=== PATIENT | female | born 1980 | race Two or more races ===

== ENCOUNTER 2021-03-17 07:53 | Inpatient (IN) | payer OTHER ==
[2021-03-17 08:16] VITALS: BMI 27.3
[2021-03-17] MEDS ORDERED: SODIUM CHLORIDE 1,000 ML IV STA (08:55)
[2021-03-17] MEDS ORDERED: MECLIZINE HCL 25 MG TABLET (FP) PO ONE (08:55)
[2021-03-17] MEDS ORDERED: ACETAMINOPHEN 500 MG TABLET (FP) PO ONE (08:56)
[2021-03-17] MEDS ORDERED: ACETAMINOPHEN INJECTION 100 ML IVPB ONE ×2 (09:10→22:21)
[2021-03-17] MEDS ORDERED: ONDANSETRON 4 MG/2 ML VIAL IVPUSH ONE (09:10)
[2021-03-17] MEDS ORDERED: ONDANSETRON 4 MG/2 ML VIAL ONE (09:11)
[2021-03-17 09:22] LABS: BASO % 0.6 % (0-2.0); EOS % 0.6 % (0-4.5); HEMATOCRIT 35.7 % (32.4-45.2); HEMOGLOBIN 11.9 GM/dL (10.7-15.3); LYMPH % 11.6 % (8-40); MCH 27.5 pg (25.7-33.7); MCHC 33.2 g/dl (32.0-36.0); MEAN CELL VOLUME 82.7 fl (80-96); MEAN PLT VOLUME 8.4 fl (7.5-11.1); MONO % 4.9 % (3.8-10.2); NEUT % 82.3 % (42.8-82.8); PLATELET COUNT 236 10^3/uL (134-434); RBC 4.32 M/mm3 (3.60-5.2); RDW 13.9 % (11.6-15.6); WHITE BLOOD COUNT 9.6 K/mm3 (4.0-10.0)
[2021-03-17 09:49] LABS: ALBUMIN 3.7 g/dl (3.4-5.0); CALCIUM 7.8 mg/dL (8.5-10.1)
[2021-03-17 09:50] LABS: BLOOD UREA NITROGEN 15.2 mg/dL (7-18)
[2021-03-17 09:53] LABS: CREATININE 0.8 mg/dL (0.55-1.3); TOT PROT 6.9 g/dl (6.4-8.2)
[2021-03-17 10:01] LABS: BILIRUBIN,TOTAL 0.9 mg/dL (0.2-1)
[2021-03-17 11:03] LABS: PH,URINE 5.5 (5.0-8.0); URINE APPEARANCE CLEAR; URINE BILIRUBIN NEGATIVE (NEGATIVE); URINE COLOR YELLOW; URINE GLUCOSE (UA) NEGATIVE (NEGATIVE); URINE KETONE NEGATIVE (NEGATIVE); URINE LEUK ESTERASE NEGATIVE (NEGATIVE); URINE NITRITE NEGATIVE (NEGATIVE); URINE PROTEIN NEGATIVE (NEGATIVE); URINE UROBILINOGEN 0.2 mg/dL (0.2-1.0)
[2021-03-17] MEDS ORDERED: MECLIZINE HCL 25 MG TABLET (FP) ONE (11:41)
[2021-03-17] MEDS ORDERED: METOCLOPRAMIDE HCL INJECTION 10 MG/2 ML VIAL ONE ×3 (12:44→22:21)
[2021-03-17] MEDS ORDERED: METOCLOPRAMIDE HCL INJECTION 10 MG/2 ML VIAL IVPUSH ONE ×3 (12:48→21:55)
[2021-03-17] MEDS ORDERED: LORazepam 2 MG/ML SDV VIAL IVPB ONE (15:20)
[2021-03-17] MEDS ORDERED: LORazepam 2 MG/ML SDV VIAL ONE (15:20)
[2021-03-17] MEDS ORDERED: LORazepam 2 MG/ML SDV VIAL IVPUSH ONE (15:35)
[2021-03-17] MEDS ORDERED: KETOROLAC TROMETHAMINE 15 MG/ML VIAL IVPUSH ONE (21:55)
[2021-03-17] MEDS ORDERED: MAGNESIUM SULF 50% (8.12 MEQ/2 ML-1 GM VIAL) IVPB ONE (21:55)
[2021-03-17] MEDS ORDERED: ACETAMINOPHEN 1000 MG/100 ML VIAL (NON FORMULARY) IVPB ONE (21:55)
[2021-03-17] MEDS ORDERED: KETOROLAC TROMETHAMINE 15 MG/ML VIAL ONE (22:21)
[2021-03-18] MEDS ORDERED: MAGNESIUM 1GM/D5W - 1 GM/100 ML IVPB IVPB ONE (01:18)
[2021-03-18] MEDS ORDERED: PROCHLORPERAZINE INJECTION 10 MG/2 ML VIAL IVPB ONE (02:11)
[2021-03-18] MEDS: SODIUM CHLORIDE 1,000 ML IV SCH ×3 (02:47→22:02)
[2021-03-18] MEDS ORDERED: MORPHINE SULFATE 2 MG/ML VIAL ONE (02:54)
[2021-03-18] MEDS ORDERED: MORPHINE SULFATE 2 MG/ML VIAL IVPUSH ONE ×2 (03:15→16:43)
[2021-03-18 03:25] LABS: CHOLESTEROL 126 mg/dL (50-200); TRIGLYCERIDES 80 mg/dL (0-150)
[2021-03-18 03:26] LABS: LDL CHOLESTEROL (ONLY SJRH) 73 mg/dL (5-100)
[2021-03-18 03:28] LABS: HDL CHOLESTEROL 48 mg/dL (40-60)
[2021-03-18 08:38] LABS: HEMATOCRIT 31.9 % (32.4-45.2); HEMOGLOBIN 10.7 GM/dL (10.7-15.3); MCH 27.2 pg (25.7-33.7); MCHC 33.6 g/dl (32.0-36.0); MEAN CELL VOLUME 81.1 fl (80-96); MEAN PLT VOLUME 8.4 fl (7.5-11.1); PLATELET COUNT 218 10^3/uL (134-434); RBC 3.93 M/mm3 (3.60-5.2); RDW 13.9 % (11.6-15.6); WHITE BLOOD COUNT 9.4 K/mm3 (4.0-10.0)
[2021-03-18 09:02] LABS: BLOOD UREA NITROGEN 8.7 mg/dL (7-18); CALCIUM 7.7 mg/dL (8.5-10.1)
[2021-03-18 09:06] LABS: CREATININE 0.6 mg/dL (0.55-1.3)
[2021-03-18] MEDS: MECLIZINE HCL 25 MG TABLET (FP) PO SCH ×3 (09:49→22:02)
[2021-03-18] MEDS ORDERED: ACETAMINOPHEN 1000 MG/100 ML VIAL (NON FORMULARY) IVPB ONE (09:52)
[2021-03-18] MEDS ORDERED: MECLIZINE HCL 25 MG TABLET (FP) PO PRN (10:00)
[2021-03-18] MEDS ORDERED: KETOROLAC TROMETHAMINE 10 MG TABLET PO PRN (10:44)
[2021-03-18] MEDS: ACETAMINOPHEN/CAFFEINE/BUTALBITAL 1 TAB PO PRN ×2 (11:02→14:36)
[2021-03-18] MEDS ORDERED: THROMBIN (BOVINE) 20,000 UNIT VIAL TP ONE (16:35)
[2021-03-18] MEDS ORDERED: BACITRACIN 15 GM TUBE TOPICAL OINTMENT ONE (16:35)
[2021-03-18] MEDS ORDERED: GENTAMICIN SO4 80 MG/2 ML VIAL ONE (16:37)
[2021-03-18] MEDS ORDERED: LIDOCAINE HCL/PF 2% SDV 5ML VIAL ONE (16:39)
[2021-03-18] MEDS ORDERED: fentaNYL CITRATE 250 MCG/5 ML VIAL ONE (16:39)
[2021-03-18] MEDS ORDERED: LIDOCAINE 1%/EPI 1:100000 (50 ML MULTI DOSE VIAL) ONE ×3 (16:39→16:52)
[2021-03-18] MEDS ORDERED: PROPOFOL 20 ML ONE ×6 (16:40→19:01)
[2021-03-18] MEDS ORDERED: BUPIVACAINE HCL/PF 0.5% (5MG/ML) 10 ML VIAL ONE (16:40)
[2021-03-18] MEDS ORDERED: LIDOCAINE HCL 1%, 10 MG/ML (20ML VIAL) ONE (16:43)
[2021-03-18] MEDS ORDERED: NICARDIPINE 25 MG in DEXTROSE 5%-WATER - 240 ML IVPB SCH (16:45)
[2021-03-18] MEDS ORDERED: PHENYLEPHRINE HCL 10 MG/1 ML SINGLE DOSE VIAL ONE (16:48)
[2021-03-18] MEDS ORDERED: morphine SULFATE 4 MG/ML VIAL IM PRN (17:26)
[2021-03-18] MEDS ORDERED: ETOMIDATE 20 MG/10 ML AMPUL IVPUSH ONE (17:39)
[2021-03-18] MEDS ORDERED: ceFAZolin SODIUM 1 GM VIAL IVPB ONE (18:06)
[2021-03-18] MEDS ORDERED: ceFAZolin SODIUM 1 GM VIAL ONE (18:12)
[2021-03-18] MEDS ORDERED: VANCOMYCIN 1,000 MG VIAL (RESTRICTED TO ID ONLY) ONE (18:19)
[2021-03-18] MEDS ORDERED: GLYCOPYRROLATE 0.2 MG/1 ML VIAL ONE (19:31)
[2021-03-18] MEDS ORDERED: NEOSTIGMINE METHYLSULFATE 0.5 MG/ML - 10 ML MDV ONE (19:32)
[2021-03-18] MEDS ORDERED: LACTATED RINGERS SOLUTION 1,000 ML/1,000 ML INFUS.BAG IV SCH (20:15)
[2021-03-18] MEDS ORDERED: SODIUM CHLORIDE 1,000 ML IV SCH (20:25)
[2021-03-18] MEDS ORDERED: ONDANSETRON 4 MG/2 ML VIAL IVPUSH PRN (21:42)
[2021-03-18] MEDS ORDERED: MUPIROCIN 2% TOPICAL OINTMENT FOR DECOLONIZATION NS SCH (22:00)
[2021-03-18] MEDS ORDERED: CHLORHEXIDINE GLUCONATE 4% CLEANSER FOR DECOLONIZATION TP SCH (22:00)
[2021-03-18] MEDS: DOCUSATE SODIUM 100 MG CAPSULE (FP) PO SCH (22:03)
[2021-03-18] MEDS: CHLORHEXIDINE GLUCONATE 4% CLEANSER FOR DECOLONIZATION TP SCH (22:03)
[2021-03-18] MEDS: MUPIROCIN 2% TOPICAL OINTMENT FOR DECOLONIZATION NS SCH (22:03)
[2021-03-18] MEDS: HEPARIN NA (PORCINE) 5,000 UNITS/ML 1ML VIAL SQ SCH (22:04)
[2021-03-18] MEDS: NICARDIPINE 25 MG in DEXTROSE 5%-WATER - 240 ML IVPB SCH (23:00)
[2021-03-19] MEDS: morphine SULFATE 4 MG/ML VIAL IM PRN ×3 (06:26→20:35)
[2021-03-19] MEDS: HEPARIN NA (PORCINE) 5,000 UNITS/ML 1ML VIAL SQ SCH ×3 (06:26→21:10)
[2021-03-19] MEDS: MECLIZINE HCL 25 MG TABLET (FP) PO SCH ×3 (06:26→21:04)
[2021-03-19] MEDS: DOCUSATE SODIUM 100 MG CAPSULE (FP) PO SCH ×3 (06:26→21:04)
[2021-03-19 08:14] LABS: HEMATOCRIT 33.7 % (32.4-45.2); HEMOGLOBIN 11.4 GM/dL (10.7-15.3); MCH 27.1 pg (25.7-33.7); MCHC 33.7 g/dl (32.0-36.0); MEAN CELL VOLUME 80.6 fl (80-96); MEAN PLT VOLUME 8.8 fl (7.5-11.1); PLATELET COUNT 213 10^3/uL (134-434); RBC 4.18 M/mm3 (3.60-5.2); RDW 13.9 % (11.6-15.6); WHITE BLOOD COUNT 12.9 K/mm3 (4.0-10.0)
[2021-03-19 08:39] LABS: BLOOD UREA NITROGEN 5.8 mg/dL (7-18)
[2021-03-19 08:40] LABS: CALCIUM 7.5 mg/dL (8.5-10.1)
[2021-03-19 08:41] LABS: CREATININE 0.6 mg/dL (0.55-1.3); MAGNESIUM 1.5 mg/dL (1.8-2.4)
[2021-03-19 08:42] LABS: PHOSPHOROUS 2.1 mg/dL (2.5-4.9)
[2021-03-19] MEDS: FERROUS SO4 325 MG TABLET (FP) PO SCH (09:23)
[2021-03-19] MEDS: FOLIC ACID 1 MG TABLET (FP) PO SCH (09:23)
[2021-03-19] MEDS: MUPIROCIN 2% TOPICAL OINTMENT FOR DECOLONIZATION NS SCH ×2 (11:00→21:10)
[2021-03-19] MEDS: SODIUM CHLORIDE 1,000 ML IV SCH ×2 (11:18→21:56)
[2021-03-19] MEDS ORDERED: MAGNESIUM SULF 50% (8.12 MEQ/2 ML-1 GM VIAL) IVPB ONE (11:46)
[2021-03-19] MEDS ORDERED: POTASSIUM PHOSPHATE 30 MM in SODIUM CHLORIDE 250 ML IVPB ONE (12:00)
[2021-03-19 12:41] LABS: COCAINE, UR NEGATIVE (NEGATIVE); METHADONE, UR NEGATIVE (NEGATIVE); PHENCYCLIDINE,URINE NEGATIVE (NEGATIVE); URINE BENZODIAZEPINES NEGATIVE (NEGATIVE)
[2021-03-19 12:42] LABS: URINE AMPHETAMINES NEGATIVE (NEGATIVE)
[2021-03-19 12:55] LABS: OPIATES, URI POSITIVE (NEGATIVE); URINE BARBITURATES POSITIVE (NEGATIVE)
[2021-03-19] MEDS ORDERED: ACETAMINOPHEN 1000 MG/100 ML VIAL (NON FORMULARY) IVPB ONE ×2 (15:00→22:58)
[2021-03-19] MEDS ORDERED: PT OWN MED DRAWER 7, Y5N ONE (18:37)
[2021-03-19 19:44] LABS: INR 1.09 (0.83-1.09); PROTHROMBIN TIME (PATIENT) 13.1 SEC (9.7-13.0)
[2021-03-19] MEDS: NICARDIPINE 25 MG in DEXTROSE 5%-WATER - 240 ML IVPB SCH (21:03)
[2021-03-19] MEDS: CHLORHEXIDINE GLUCONATE 4% CLEANSER FOR DECOLONIZATION TP SCH (21:09)
[2021-03-20] MEDS: morphine SULFATE 4 MG/ML VIAL IM PRN ×2 (04:26→10:43)
[2021-03-20] MEDS: MECLIZINE HCL 25 MG TABLET (FP) PO SCH ×3 (05:54→21:51)
[2021-03-20] MEDS: DOCUSATE SODIUM 100 MG CAPSULE (FP) PO SCH ×3 (05:54→21:52)
[2021-03-20] MEDS: HEPARIN NA (PORCINE) 5,000 UNITS/ML 1ML VIAL SQ SCH ×3 (06:44→21:51)
[2021-03-20 07:36] LABS: BASO % 0.2 % (0-2.0); EOS % 0.3 % (0-4.5); HEMATOCRIT 30.7 % (32.4-45.2); HEMOGLOBIN 10.3 GM/dL (10.7-15.3); MCHC 33.4 g/dl (32.0-36.0); MEAN CELL VOLUME 80.9 fl (80-96); MEAN PLT VOLUME 8.2 fl (7.5-11.1); MONO % 10.1 % (3.8-10.2); NEUT % 75.4 % (42.8-82.8); PLATELET COUNT 185 10^3/uL (134-434); RBC 3.79 M/mm3 (3.60-5.2); RDW 14.1 % (11.6-15.6); WHITE BLOOD COUNT 8.3 K/mm3 (4.0-10.0)
[2021-03-20 07:49] LABS: BLOOD UREA NITROGEN 8.4 mg/dL (7-18); CALCIUM 7.3 mg/dL (8.5-10.1); MAGNESIUM 1.8 mg/dL (1.8-2.4)
[2021-03-20 07:53] LABS: CREATININE 0.6 mg/dL (0.55-1.3)
[2021-03-20 07:55] LABS: PHOSPHOROUS 2.9 mg/dL (2.5-4.9)
[2021-03-20 07:57] LABS: TOT PROT 5.9 g/dl (6.4-8.2)
[2021-03-20 07:59] LABS: BILIRUBIN,TOTAL 1.3 mg/dL (0.2-1)
[2021-03-20 08:10] LABS: HOMOCYSTINE-PLASMA OR SERUM 6.5 umol/L (0.0-14.5)
[2021-03-20] MEDS ORDERED: PT OWN MED DRAWER 7, Y5N ONE (08:26)
[2021-03-20] MEDS: KETOROLAC TROMETHAMINE 10 MG TABLET PO PRN ×2 (08:28→15:07)
[2021-03-20] MEDS: FERROUS SO4 325 MG TABLET (FP) PO SCH (10:47)
[2021-03-20] MEDS: FOLIC ACID 1 MG TABLET (FP) PO SCH (10:47)
[2021-03-20] MEDS: MUPIROCIN 2% TOPICAL OINTMENT FOR DECOLONIZATION NS SCH ×2 (10:48→21:51)
[2021-03-20] MEDS: PANTOPRAZOLE SODIUM 40 MG VIAL IVPUSH SCH (10:48)
[2021-03-20] MEDS: diphenhydrAMINE HCL 25 MG CAPSULE (FP) PO PRN (12:41)
[2021-03-20] MEDS ORDERED: ONDANSETRON 4 MG/2 ML VIAL IVPUSH PRN (14:20)
[2021-03-20] MEDS: SODIUM CHLORIDE 1,000 ML IV SCH ×2 (14:26→21:50)
[2021-03-20] MEDS: ACETAMINOPHEN/CAFFEINE/BUTALBITAL 1 TAB PO PRN (21:15)
[2021-03-20] MEDS: ATORVASTATIN CA 40 MG TABLET (FP) PO SCH (21:50)
[2021-03-20] MEDS: NICARDIPINE 25 MG in DEXTROSE 5%-WATER - 240 ML IVPB SCH (21:50)
[2021-03-20] MEDS: CHLORHEXIDINE GLUCONATE 4% CLEANSER FOR DECOLONIZATION TP SCH (21:52)
[2021-03-21] MEDS: ACETAMINOPHEN/CAFFEINE/BUTALBITAL 1 TAB PO PRN ×2 (00:31→04:26)
[2021-03-21] MEDS: KETOROLAC TROMETHAMINE 10 MG TABLET PO PRN ×2 (05:54→11:45)
[2021-03-21] MEDS: HEPARIN NA (PORCINE) 5,000 UNITS/ML 1ML VIAL SQ SCH ×3 (06:05→21:31)
[2021-03-21] MEDS: MECLIZINE HCL 25 MG TABLET (FP) PO SCH ×3 (06:05→21:32)
[2021-03-21] MEDS: DOCUSATE SODIUM 100 MG CAPSULE (FP) PO SCH ×3 (06:05→21:33)
[2021-03-21 06:52] LABS: BASO % 0.6 % (0-2.0); EOS % 0.9 % (0-4.5); HEMATOCRIT 30.6 % (32.4-45.2); HEMOGLOBIN 10.3 GM/dL (10.7-15.3); LYMPH % 17.5 % (8-40); MCH 27.3 pg (25.7-33.7); MCHC 33.6 g/dl (32.0-36.0); MEAN CELL VOLUME 81.2 fl (80-96); MEAN PLT VOLUME 8.6 fl (7.5-11.1); MONO % 9.2 % (3.8-10.2); NEUT % 71.8 % (42.8-82.8); PLATELET COUNT 186 10^3/uL (134-434); RBC 3.77 M/mm3 (3.60-5.2); RDW 14.1 % (11.6-15.6); WHITE BLOOD COUNT 7.2 K/mm3 (4.0-10.0)
[2021-03-21 07:09] LABS: CALCIUM 7.8 mg/dL (8.5-10.1)
[2021-03-21 07:10] LABS: ALBUMIN 2.8 g/dl (3.4-5.0); BLOOD UREA NITROGEN 8.7 mg/dL (7-18); MAGNESIUM 1.7 mg/dL (1.8-2.4)
[2021-03-21 07:13] LABS: CREATININE 0.5 mg/dL (0.55-1.3); PHOSPHOROUS 3.5 mg/dL (2.5-4.9)
[2021-03-21 07:14] LABS: BILIRUBIN,TOTAL 0.9 mg/dL (0.2-1); TOT PROT 5.8 g/dl (6.4-8.2)
[2021-03-21] MEDS: PANTOPRAZOLE SODIUM 40 MG VIAL IVPUSH SCH (10:36)
[2021-03-21] MEDS: FERROUS SO4 325 MG TABLET (FP) PO SCH (10:36)
[2021-03-21] MEDS: FOLIC ACID 1 MG TABLET (FP) PO SCH (10:36)
[2021-03-21] MEDS: MUPIROCIN 2% TOPICAL OINTMENT FOR DECOLONIZATION NS SCH ×2 (11:00→21:32)
[2021-03-21] MEDS ORDERED: PT OWN MED DRAWER 7, Y5N ONE (11:44)
[2021-03-21] MEDS: morphine SULFATE 4 MG/ML VIAL IM PRN ×2 (17:09→21:00)
[2021-03-21] MEDS: POLYETHYLENE GLYCOL (HEALTHYLAX) 3350 17 GM PACKET PO SCH (19:42)
[2021-03-21] MEDS: ATORVASTATIN CA 40 MG TABLET (FP) PO SCH (21:32)
[2021-03-21] MEDS: diphenhydrAMINE HCL 25 MG CAPSULE (FP) PO PRN (21:32)
[2021-03-21] MEDS: NICARDIPINE 25 MG in DEXTROSE 5%-WATER - 240 ML IVPB SCH (21:32)
[2021-03-21] MEDS: CHLORHEXIDINE GLUCONATE 4% CLEANSER FOR DECOLONIZATION TP SCH (21:33)
[2021-03-21] MEDS ORDERED: SENNOSIDES 8.6MG TABLET (FP) PO SCH (22:00)
[2021-03-22] MEDS: KETOROLAC TROMETHAMINE 10 MG TABLET PO PRN (04:14)
[2021-03-22] MEDS: DOCUSATE SODIUM 100 MG CAPSULE (FP) PO SCH ×3 (05:56→21:53)
[2021-03-22] MEDS: HEPARIN NA (PORCINE) 5,000 UNITS/ML 1ML VIAL SQ SCH ×3 (05:56→21:53)
[2021-03-22] MEDS: MECLIZINE HCL 25 MG TABLET (FP) PO SCH ×3 (05:56→21:53)
[2021-03-22 07:52] LABS: BASO % 0.5 % (0-2.0); EOS % 1.1 % (0-4.5); HEMATOCRIT 29.6 % (32.4-45.2); HEMOGLOBIN 10.1 GM/dL (10.7-15.3); LYMPH % 14.4 % (8-40); MCH 27.5 pg (25.7-33.7); MCHC 34.1 g/dl (32.0-36.0); MEAN CELL VOLUME 80.6 fl (80-96); MEAN PLT VOLUME 8.2 fl (7.5-11.1); MONO % 7.6 % (3.8-10.2); NEUT % 76.4 % (42.8-82.8); PLATELET COUNT 225 10^3/uL (134-434); RBC 3.68 M/mm3 (3.60-5.2); RDW 14.2 % (11.6-15.6); WHITE BLOOD COUNT 7.8 K/mm3 (4.0-10.0)
[2021-03-22 08:17] LABS: ALBUMIN 2.8 g/dl (3.4-5.0); BLOOD UREA NITROGEN 8.6 mg/dL (7-18); MAGNESIUM 1.6 mg/dL (1.8-2.4)
[2021-03-22 08:19] LABS: CREATININE 0.5 mg/dL (0.55-1.3); PHOSPHOROUS 4.2 mg/dL (2.5-4.9)
[2021-03-22 08:21] LABS: BILIRUBIN,TOTAL 0.6 mg/dL (0.2-1)
[2021-03-22] MEDS: MUPIROCIN 2% TOPICAL OINTMENT FOR DECOLONIZATION NS SCH ×2 (09:07→21:53)
[2021-03-22] MEDS: POLYETHYLENE GLYCOL (HEALTHYLAX) 3350 17 GM PACKET PO SCH (09:07)
[2021-03-22] MEDS: FOLIC ACID 1 MG TABLET (FP) PO SCH (09:07)
[2021-03-22] MEDS: FERROUS SO4 325 MG TABLET (FP) PO SCH (09:07)
[2021-03-22] MEDS: PANTOPRAZOLE SODIUM 40 MG VIAL IVPUSH SCH (09:07)
[2021-03-22] MEDS: morphine SULFATE 4 MG/ML VIAL IM PRN ×2 (11:50→22:25)
[2021-03-22] MEDS ORDERED: MAGNESIUM OXIDE 400 MG TABLET (FP) PO ONE (12:30)
[2021-03-22] MEDS: CHLORHEXIDINE GLUCONATE 4% CLEANSER FOR DECOLONIZATION TP SCH (21:54)
[2021-03-22] MEDS: ATORVASTATIN CA 40 MG TABLET (FP) PO SCH (21:54)
[2021-03-22] MEDS: diphenhydrAMINE HCL 25 MG CAPSULE (FP) PO PRN (22:26)
[2021-03-23] MEDS: DOCUSATE SODIUM 100 MG CAPSULE (FP) PO SCH ×3 (05:30→21:18)
[2021-03-23] MEDS: HEPARIN NA (PORCINE) 5,000 UNITS/ML 1ML VIAL SQ SCH ×3 (05:30→21:18)
[2021-03-23] MEDS: MECLIZINE HCL 25 MG TABLET (FP) PO SCH ×3 (05:30→21:18)
[2021-03-23 07:32] LABS: BASO % 0.3 % (0-2.0); EOS % 2.1 % (0-4.5); HEMATOCRIT 33.7 % (32.4-45.2); HEMOGLOBIN 11.3 GM/dL (10.7-15.3); LYMPH % 14.1 % (8-40); MCH 27.1 pg (25.7-33.7); MCHC 33.4 g/dl (32.0-36.0); MEAN PLT VOLUME 8.4 fl (7.5-11.1); MONO % 6.9 % (3.8-10.2); NEUT % 76.6 % (42.8-82.8); PLATELET COUNT 263 10^3/uL (134-434); RBC 4.16 M/mm3 (3.60-5.2); RDW 14.3 % (11.6-15.6); WHITE BLOOD COUNT 7.3 K/mm3 (4.0-10.0)
[2021-03-23 07:51] LABS: ALBUMIN 3.2 g/dl (3.4-5.0); BLOOD UREA NITROGEN 8.8 mg/dL (7-18); CALCIUM 8.7 mg/dL (8.5-10.1)
[2021-03-23 07:55] LABS: CREATININE 0.7 mg/dL (0.55-1.3); PHOSPHOROUS 4.2 mg/dL (2.5-4.9)
[2021-03-23 07:56] LABS: BILIRUBIN,TOTAL 0.7 mg/dL (0.2-1); TOT PROT 6.8 g/dl (6.4-8.2)
[2021-03-23] MEDS: POLYETHYLENE GLYCOL (HEALTHYLAX) 3350 17 GM PACKET PO SCH (11:24)
[2021-03-23] MEDS: PANTOPRAZOLE SODIUM 40 MG VIAL IVPUSH SCH (11:24)
[2021-03-23] MEDS: FERROUS SO4 325 MG TABLET (FP) PO SCH (11:24)
[2021-03-23] MEDS: FOLIC ACID 1 MG TABLET (FP) PO SCH (11:24)
[2021-03-23] MEDS ORDERED: BACITRACIN 15 GM TUBE TOPICAL OINTMENT TP SCH (13:00)
[2021-03-23] MEDS ORDERED: PT OWN MED DRAWER 7, Y5N ONE (14:09)
[2021-03-23] MEDS: KETOROLAC TROMETHAMINE 10 MG TABLET PO PRN (14:20)
[2021-03-23] MEDS: MUPIROCIN 2% TOPICAL OINTMENT FOR DECOLONIZATION NS SCH (14:22)
[2021-03-23] MEDS: ATORVASTATIN CA 40 MG TABLET (FP) PO SCH (21:19)
[2021-03-23] MEDS: CHLORHEXIDINE GLUCONATE 4% CLEANSER FOR DECOLONIZATION TP SCH (21:19)
[2021-03-23] MEDS: morphine SULFATE 4 MG/ML VIAL IM PRN (23:39)
[2021-03-23] MEDS: diphenhydrAMINE HCL 25 MG CAPSULE (FP) PO PRN (23:39)
[2021-03-24] MEDS: DOCUSATE SODIUM 100 MG CAPSULE (FP) PO SCH ×3 (05:32→21:27)
[2021-03-24] MEDS: MECLIZINE HCL 25 MG TABLET (FP) PO SCH ×3 (05:32→21:27)
[2021-03-24] MEDS: HEPARIN NA (PORCINE) 5,000 UNITS/ML 1ML VIAL SQ SCH ×3 (05:33→21:27)
[2021-03-24 06:56] LABS: BASO % 0.7 % (0-2.0); EOS % 2.6 % (0-4.5); HEMATOCRIT 30.5 % (32.4-45.2); HEMOGLOBIN 10.4 GM/dL (10.7-15.3); LYMPH % 14.8 % (8-40); MCH 27.2 pg (25.7-33.7); MCHC 33.9 g/dl (32.0-36.0); MEAN CELL VOLUME 80.2 fl (80-96); MEAN PLT VOLUME 7.7 fl (7.5-11.1); MONO % 6.9 % (3.8-10.2); PLATELET COUNT 258 10^3/uL (134-434); RDW 14.3 % (11.6-15.6); WHITE BLOOD COUNT 7.5 K/mm3 (4.0-10.0)
[2021-03-24 07:15] LABS: CALCIUM 8.2 mg/dL (8.5-10.1)
[2021-03-24 07:16] LABS: BLOOD UREA NITROGEN 12.1 mg/dL (7-18)
[2021-03-24 07:19] LABS: CREATININE 0.6 mg/dL (0.55-1.3); PHOSPHOROUS 3.8 mg/dL (2.5-4.9)
[2021-03-24 07:20] LABS: BILIRUBIN,TOTAL 0.6 mg/dL (0.2-1); TOT PROT 6.4 g/dl (6.4-8.2)
[2021-03-24] MEDS ORDERED: PT OWN MED DRAWER 7, Y5N ONE ×2 (09:02→21:58)
[2021-03-24] MEDS: BACITRACIN 15 GM TUBE TOPICAL OINTMENT TP SCH (09:17)
[2021-03-24] MEDS: FOLIC ACID 1 MG TABLET (FP) PO SCH (09:18)
[2021-03-24] MEDS: POLYETHYLENE GLYCOL (HEALTHYLAX) 3350 17 GM PACKET PO SCH (09:18)
[2021-03-24] MEDS: PANTOPRAZOLE SODIUM 40 MG VIAL IVPUSH SCH (09:18)
[2021-03-24] MEDS: FERROUS SO4 325 MG TABLET (FP) PO SCH (09:18)
[2021-03-24] MEDS ORDERED: KETOROLAC TROMETHAMINE 15 MG/ML VIAL IM PRN (15:35)
[2021-03-24] MEDS: MORPHINE SULFATE 2 MG/ML VIAL IVPUSH PRN ×2 (15:45→21:28)
[2021-03-24] MEDS: ATORVASTATIN CA 40 MG TABLET (FP) PO SCH (21:27)
[2021-03-24] MEDS: CHLORHEXIDINE GLUCONATE 4% CLEANSER FOR DECOLONIZATION TP SCH (21:27)
[2021-03-24] MEDS: diphenhydrAMINE HCL 25 MG CAPSULE (FP) PO PRN (21:28)
[2021-03-25] MEDS: KETOROLAC TROMETHAMINE 15 MG/ML VIAL IVPUSH PRN (00:53)
[2021-03-25] MEDS: DOCUSATE SODIUM 100 MG CAPSULE (FP) PO SCH ×3 (06:30→21:19)
[2021-03-25] MEDS: MECLIZINE HCL 25 MG TABLET (FP) PO SCH ×3 (06:30→21:20)
[2021-03-25] MEDS: HEPARIN NA (PORCINE) 5,000 UNITS/ML 1ML VIAL SQ SCH ×2 (06:30→14:00)
[2021-03-25 06:41] LABS: BASO % 0.7 % (0-2.0); EOS % 3.2 % (0-4.5); HEMATOCRIT 31.1 % (32.4-45.2); HEMOGLOBIN 10.3 GM/dL (10.7-15.3); LYMPH % 23.7 % (8-40); MCH 26.9 pg (25.7-33.7); MCHC 33.3 g/dl (32.0-36.0); MEAN CELL VOLUME 80.8 fl (80-96); MEAN PLT VOLUME 8.2 fl (7.5-11.1); MONO % 7.7 % (3.8-10.2); NEUT % 64.7 % (42.8-82.8); PLATELET COUNT 271 10^3/uL (134-434); RBC 3.84 M/mm3 (3.60-5.2); RDW 14.1 % (11.6-15.6); WHITE BLOOD COUNT 7.7 K/mm3 (4.0-10.0)
[2021-03-25 06:58] LABS: CALCIUM 8.7 mg/dL (8.5-10.1)
[2021-03-25 06:59] LABS: BLOOD UREA NITROGEN 9.8 mg/dL (7-18); MAGNESIUM 1.9 mg/dL (1.8-2.4)
[2021-03-25 07:02] LABS: CREATININE 0.6 mg/dL (0.55-1.3)
[2021-03-25 07:03] LABS: BILIRUBIN,TOTAL 0.7 mg/dL (0.2-1); TOT PROT 6.3 g/dl (6.4-8.2)
[2021-03-25] MEDS: FOLIC ACID 1 MG TABLET (FP) PO SCH (10:51)
[2021-03-25] MEDS: PANTOPRAZOLE SODIUM 40 MG VIAL IVPUSH SCH (10:51)
[2021-03-25] MEDS: POLYETHYLENE GLYCOL (HEALTHYLAX) 3350 17 GM PACKET PO SCH (10:51)
[2021-03-25] MEDS: FERROUS SO4 325 MG TABLET (FP) PO SCH (10:51)
[2021-03-25] MEDS: BACITRACIN 15 GM TUBE TOPICAL OINTMENT TP SCH (11:00)
[2021-03-25] MEDS: ACETAMINOPHEN 1000 MG/100 ML VIAL (NON FORMULARY) IVPB PRN (11:17)
[2021-03-25] MEDS ORDERED: MIDAZOLAM HCL 2 MG/2 ML SINGLE DOSE VIAL ONE ×2 (14:46)
[2021-03-25] MEDS ORDERED: LIDOCAINE VISCOUS 2% ORAL/TOP 15 ML UNIT-DOSE CUP ONE (17:31)
[2021-03-25] MEDS: CHLORHEXIDINE GLUCONATE 4% CLEANSER FOR DECOLONIZATION TP SCH (21:19)
[2021-03-25] MEDS: ATORVASTATIN CA 40 MG TABLET (FP) PO SCH (21:19)
[2021-03-25] MEDS: MORPHINE SULFATE 2 MG/ML VIAL IVPUSH PRN (21:20)
[2021-03-25] MEDS ORDERED: MELATONIN 5 MG TABLETS PO ONE (21:31)
[2021-03-26] MEDS: DOCUSATE SODIUM 100 MG CAPSULE (FP) PO SCH ×3 (06:05→21:08)
[2021-03-26] MEDS: KETOROLAC TROMETHAMINE 15 MG/ML VIAL IVPUSH PRN (06:05)
[2021-03-26] MEDS: MECLIZINE HCL 25 MG TABLET (FP) PO SCH ×3 (06:05→21:08)
[2021-03-26 07:21] LABS: BASO % 0.5 % (0-2.0); EOS % 3.1 % (0-4.5); HEMATOCRIT 31.3 % (32.4-45.2); HEMOGLOBIN 10.6 GM/dL (10.7-15.3); LYMPH % 14.4 % (8-40); MCH 27.1 pg (25.7-33.7); MCHC 33.8 g/dl (32.0-36.0); MEAN CELL VOLUME 80.2 fl (80-96); MEAN PLT VOLUME 7.7 fl (7.5-11.1); MONO % 7.3 % (3.8-10.2); NEUT % 74.7 % (42.8-82.8); PLATELET COUNT 276 10^3/uL (134-434); RDW 14.4 % (11.6-15.6); WHITE BLOOD COUNT 7.3 K/mm3 (4.0-10.0)
[2021-03-26 07:39] LABS: ALBUMIN 3.3 g/dl (3.4-5.0); BLOOD UREA NITROGEN 13.1 mg/dL (7-18); CALCIUM 8.8 mg/dL (8.5-10.1)
[2021-03-26 07:43] LABS: CREATININE 0.7 mg/dL (0.55-1.3)
[2021-03-26 07:44] LABS: BILIRUBIN,TOTAL 0.9 mg/dL (0.2-1); TOT PROT 6.6 g/dl (6.4-8.2)
[2021-03-26] MEDS: FERROUS SO4 325 MG TABLET (FP) PO SCH (09:05)
[2021-03-26] MEDS: POLYETHYLENE GLYCOL (HEALTHYLAX) 3350 17 GM PACKET PO SCH (09:05)
[2021-03-26] MEDS: PANTOPRAZOLE SODIUM 40 MG VIAL IVPUSH SCH (09:05)
[2021-03-26] MEDS: FOLIC ACID 1 MG TABLET (FP) PO SCH (09:05)
[2021-03-26] MEDS: ASPIRIN 81 MG CHEWABLE TABLETS PO SCH (09:05)
[2021-03-26] MEDS: BACITRACIN 15 GM TUBE TOPICAL OINTMENT TP SCH (09:07)
[2021-03-26] MEDS: ACETAMINOPHEN 1000 MG/100 ML VIAL (NON FORMULARY) IVPB PRN (14:33)
[2021-03-26] MEDS: CHLORHEXIDINE GLUCONATE 4% CLEANSER FOR DECOLONIZATION TP SCH (21:08)
[2021-03-26] MEDS: ATORVASTATIN CA 40 MG TABLET (FP) PO SCH (21:09)
[2021-03-26] MEDS: MORPHINE SULFATE 2 MG/ML VIAL IVPUSH PRN (21:09)
[2021-03-26] MEDS: MELATONIN 5 MG TABLETS PO SCH (21:45)
[2021-03-27] MEDS: MORPHINE SULFATE 2 MG/ML VIAL IVPUSH PRN (03:50)
[2021-03-27] MEDS: MECLIZINE HCL 25 MG TABLET (FP) PO SCH ×3 (06:45→21:29)
[2021-03-27] MEDS: DOCUSATE SODIUM 100 MG CAPSULE (FP) PO SCH ×3 (06:45→21:29)
[2021-03-27 07:31] LABS: BASO % 0.7 % (0-2.0); EOS % 3.2 % (0-4.5); HEMATOCRIT 31.6 % (32.4-45.2); HEMOGLOBIN 10.6 GM/dL (10.7-15.3); LYMPH % 15.2 % (8-40); MCH 27.2 pg (25.7-33.7); MCHC 33.4 g/dl (32.0-36.0); MEAN CELL VOLUME 81.3 fl (80-96); MONO % 6.4 % (3.8-10.2); NEUT % 74.5 % (42.8-82.8); PLATELET COUNT 282 10^3/uL (134-434); RBC 3.88 M/mm3 (3.60-5.2); WHITE BLOOD COUNT 8.3 K/mm3 (4.0-10.0)
[2021-03-27 07:51] LABS: ALBUMIN 3.2 g/dl (3.4-5.0); BLOOD UREA NITROGEN 10.6 mg/dL (7-18); CALCIUM 8.5 mg/dL (8.5-10.1)
[2021-03-27 07:54] LABS: CREATININE 0.7 mg/dL (0.55-1.3)
[2021-03-27 07:56] LABS: BILIRUBIN,TOTAL 0.5 mg/dL (0.2-1); TOT PROT 6.5 g/dl (6.4-8.2)
[2021-03-27] MEDS: ASPIRIN 81 MG CHEWABLE TABLETS PO SCH (10:28)
[2021-03-27] MEDS: BACITRACIN 15 GM TUBE TOPICAL OINTMENT TP SCH (10:28)
[2021-03-27] MEDS: FERROUS SO4 325 MG TABLET (FP) PO SCH (10:28)
[2021-03-27] MEDS: FOLIC ACID 1 MG TABLET (FP) PO SCH (10:29)
[2021-03-27] MEDS: PANTOPRAZOLE 40 MG TABLET PO SCH (10:29)
[2021-03-27] MEDS: POLYETHYLENE GLYCOL (HEALTHYLAX) 3350 17 GM PACKET PO SCH (10:29)
[2021-03-27] MEDS ORDERED: MORPHINE SULFATE 2 MG/ML VIAL IVPUSH PRN (16:24)
[2021-03-27] MEDS ORDERED: diphenhydrAMINE HCL 25 MG CAPSULE (FP) PO PRN (16:24)
[2021-03-27] MEDS ORDERED: ONDANSETRON 4 MG/2 ML VIAL IVPUSH PRN (16:24)
[2021-03-27] MEDS: KETOROLAC TROMETHAMINE 15 MG/ML VIAL IVPUSH PRN (19:35)
[2021-03-27] MEDS: ATORVASTATIN CA 40 MG TABLET (FP) PO SCH (21:29)
[2021-03-27] MEDS: CHLORHEXIDINE GLUCONATE 4% CLEANSER FOR DECOLONIZATION TP SCH (21:31)
[2021-03-27] MEDS: MELATONIN 5 MG TABLETS PO SCH (21:31)
[2021-03-28] MEDS: MECLIZINE HCL 25 MG TABLET (FP) PO SCH ×3 (05:39→21:06)
[2021-03-28] MEDS: DOCUSATE SODIUM 100 MG CAPSULE (FP) PO SCH ×3 (05:39→21:06)
[2021-03-28 07:14] LABS: BASO % 0.9 % (0-2.0); EOS % 3.6 % (0-4.5); HEMATOCRIT 32.5 % (32.4-45.2); HEMOGLOBIN 10.8 GM/dL (10.7-15.3); LYMPH % 16.6 % (8-40); MCH 27.3 pg (25.7-33.7); MCHC 33.4 g/dl (32.0-36.0); MEAN PLT VOLUME 8.1 fl (7.5-11.1); NEUT % 71.9 % (42.8-82.8); PLATELET COUNT 294 10^3/uL (134-434); RBC 3.97 M/mm3 (3.60-5.2); RDW 14.2 % (11.6-15.6)
[2021-03-28 07:20] LABS: ALBUMIN 3.3 g/dl (3.4-5.0); BLOOD UREA NITROGEN 12.2 mg/dL (7-18); CALCIUM 8.6 mg/dL (8.5-10.1); MAGNESIUM 1.9 mg/dL (1.8-2.4)
[2021-03-28 07:23] LABS: CREATININE 0.8 mg/dL (0.55-1.3)
[2021-03-28 07:25] LABS: BILIRUBIN,TOTAL 0.4 mg/dL (0.2-1); TOT PROT 6.8 g/dl (6.4-8.2)
[2021-03-28] MEDS: ASPIRIN 81 MG CHEWABLE TABLETS PO SCH (09:41)
[2021-03-28] MEDS: FERROUS SO4 325 MG TABLET (FP) PO SCH (09:41)
[2021-03-28] MEDS: PANTOPRAZOLE 40 MG TABLET PO SCH (09:41)
[2021-03-28] MEDS: POLYETHYLENE GLYCOL (HEALTHYLAX) 3350 17 GM PACKET PO SCH (09:41)
[2021-03-28] MEDS: FOLIC ACID 1 MG TABLET (FP) PO SCH (09:41)
[2021-03-28] MEDS: BACITRACIN 15 GM TUBE TOPICAL OINTMENT TP SCH (09:42)
[2021-03-28] MEDS ORDERED: PT OWN MED DRAWER 7, Y5N ONE (20:55)
[2021-03-28] MEDS: ATORVASTATIN CA 40 MG TABLET (FP) PO SCH (21:06)
[2021-03-28] MEDS: FAMOTIDINE 20 MG TABLET PO SCH (21:06)
[2021-03-28] MEDS: KETOROLAC TROMETHAMINE 15 MG/ML VIAL IVPUSH PRN (21:06)
[2021-03-28] MEDS: MELATONIN 5 MG TABLETS PO SCH (21:06)
[2021-03-28] MEDS: CHLORHEXIDINE GLUCONATE 4% CLEANSER FOR DECOLONIZATION TP SCH (21:13)
[2021-03-29] MEDS: DOCUSATE SODIUM 100 MG CAPSULE (FP) PO SCH ×3 (05:17→21:50)
[2021-03-29] MEDS: MECLIZINE HCL 25 MG TABLET (FP) PO SCH ×3 (05:17→21:50)
[2021-03-29 07:35] LABS: BASO % 1.1 % (0-2.0); EOS % 3.7 % (0-4.5); HEMOGLOBIN 10.7 GM/dL (10.7-15.3); LYMPH % 20.7 % (8-40); MCHC 33.5 g/dl (32.0-36.0); MEAN CELL VOLUME 80.6 fl (80-96); MEAN PLT VOLUME 8.1 fl (7.5-11.1); MONO % 8.4 % (3.8-10.2); NEUT % 66.1 % (42.8-82.8); PLATELET COUNT 281 10^3/uL (134-434); RBC 3.97 M/mm3 (3.60-5.2); WHITE BLOOD COUNT 7.2 K/mm3 (4.0-10.0)
[2021-03-29 07:51] LABS: CALCIUM 8.6 mg/dL (8.5-10.1)
[2021-03-29 07:52] LABS: ALBUMIN 3.4 g/dl (3.4-5.0); BLOOD UREA NITROGEN 13.8 mg/dL (7-18); MAGNESIUM 2.3 mg/dL (1.8-2.4)
[2021-03-29 07:55] LABS: CREATININE 0.7 mg/dL (0.55-1.3)
[2021-03-29 07:56] LABS: BILIRUBIN,TOTAL 0.3 mg/dL (0.2-1)
[2021-03-29 07:57] LABS: TOT PROT 6.8 g/dl (6.4-8.2)
[2021-03-29] MEDS: POLYETHYLENE GLYCOL (HEALTHYLAX) 3350 17 GM PACKET PO SCH (09:17)
[2021-03-29] MEDS: ASPIRIN 81 MG CHEWABLE TABLETS PO SCH (09:17)
[2021-03-29] MEDS: FAMOTIDINE 20 MG TABLET PO SCH ×2 (09:17→21:50)
[2021-03-29] MEDS: BACITRACIN 15 GM TUBE TOPICAL OINTMENT TP SCH (09:17)
[2021-03-29] MEDS: FOLIC ACID 1 MG TABLET (FP) PO SCH (09:17)
[2021-03-29] MEDS: FERROUS SO4 325 MG TABLET (FP) PO SCH (09:35)
[2021-03-29] MEDS: KETOROLAC TROMETHAMINE 15 MG/ML VIAL IVPUSH PRN ×2 (15:33→21:49)
[2021-03-29] MEDS: MELATONIN 5 MG TABLETS PO SCH (21:49)
[2021-03-29] MEDS: ATORVASTATIN CA 40 MG TABLET (FP) PO SCH (21:50)
[2021-03-29] MEDS: CHLORHEXIDINE GLUCONATE 4% CLEANSER FOR DECOLONIZATION TP SCH (21:51)
[2021-03-30] MEDS ORDERED: ACETAMINOPHEN/CAFFEINE/BUTALBITAL 1 TAB PO ONE ×2 (02:45→21:31)
[2021-03-30] MEDS: DOCUSATE SODIUM 100 MG CAPSULE (FP) PO SCH ×3 (06:28→21:41)
[2021-03-30] MEDS: MECLIZINE HCL 25 MG TABLET (FP) PO SCH ×3 (06:28→21:41)
[2021-03-30 07:31] LABS: BASO % 0.8 % (0-2.0); EOS % 4.3 % (0-4.5); HEMATOCRIT 33.1 % (32.4-45.2); HEMOGLOBIN 10.9 GM/dL (10.7-15.3); LYMPH % 23.6 % (8-40); MCH 26.7 pg (25.7-33.7); MCHC 32.9 g/dl (32.0-36.0); MEAN CELL VOLUME 81.2 fl (80-96); MEAN PLT VOLUME 8.3 fl (7.5-11.1); MONO % 6.9 % (3.8-10.2); NEUT % 64.4 % (42.8-82.8); PLATELET COUNT 275 10^3/uL (134-434); RBC 4.08 M/mm3 (3.60-5.2); RDW 14.3 % (11.6-15.6); WHITE BLOOD COUNT 7.4 K/mm3 (4.0-10.0)
[2021-03-30 07:57] LABS: ALBUMIN 3.6 g/dl (3.4-5.0); BLOOD UREA NITROGEN 13.8 mg/dL (7-18); CALCIUM 8.8 mg/dL (8.5-10.1)
[2021-03-30 08:00] LABS: CREATININE 0.7 mg/dL (0.55-1.3)
[2021-03-30 08:02] LABS: BILIRUBIN,TOTAL 0.6 mg/dL (0.2-1); TOT PROT 7.1 g/dl (6.4-8.2)
[2021-03-30 08:42] LABS: Hgb F 0; Hgb S 0
[2021-03-30] MEDS: BACITRACIN 15 GM TUBE TOPICAL OINTMENT TP SCH (09:12)
[2021-03-30] MEDS: FAMOTIDINE 20 MG TABLET PO SCH ×2 (09:12→21:42)
[2021-03-30] MEDS: FOLIC ACID 1 MG TABLET (FP) PO SCH (09:12)
[2021-03-30] MEDS: POLYETHYLENE GLYCOL (HEALTHYLAX) 3350 17 GM PACKET PO SCH (09:12)
[2021-03-30] MEDS: FERROUS SO4 325 MG TABLET (FP) PO SCH (09:12)
[2021-03-30] MEDS: ASPIRIN 81 MG CHEWABLE TABLETS PO SCH (09:12)
[2021-03-30] MEDS: ATORVASTATIN CA 40 MG TABLET (FP) PO SCH (21:41)
[2021-03-30] MEDS: MELATONIN 5 MG TABLETS PO SCH (21:41)
[2021-03-31] MEDS: CHLORHEXIDINE GLUCONATE 4% CLEANSER FOR DECOLONIZATION TP SCH ×2 (00:13→21:10)
[2021-03-31] MEDS: MECLIZINE HCL 25 MG TABLET (FP) PO SCH ×3 (06:08→21:09)
[2021-03-31] MEDS: DOCUSATE SODIUM 100 MG CAPSULE (FP) PO SCH ×3 (06:08→21:09)
[2021-03-31 07:43] LABS: BASO % 0.7 % (0-2.0); HEMATOCRIT 32.4 % (32.4-45.2); HEMOGLOBIN 10.8 GM/dL (10.7-15.3); LYMPH % 20.8 % (8-40); MCHC 33.4 g/dl (32.0-36.0); MEAN CELL VOLUME 80.8 fl (80-96); MEAN PLT VOLUME 8.9 fl (7.5-11.1); MONO % 6.9 % (3.8-10.2); NEUT % 67.6 % (42.8-82.8); PLATELET COUNT 263 10^3/uL (134-434); RDW 14.3 % (11.6-15.6); WHITE BLOOD COUNT 8.7 K/mm3 (4.0-10.0)
[2021-03-31 08:04] LABS: CALCIUM 8.3 mg/dL (8.5-10.1)
[2021-03-31 08:05] LABS: ALBUMIN 3.4 g/dl (3.4-5.0); BLOOD UREA NITROGEN 15.4 mg/dL (7-18); MAGNESIUM 2.1 mg/dL (1.8-2.4)
[2021-03-31 08:08] LABS: CREATININE 0.8 mg/dL (0.55-1.3)
[2021-03-31 08:10] LABS: BILIRUBIN,TOTAL 0.2 mg/dL (0.2-1); TOT PROT 6.8 g/dl (6.4-8.2)
[2021-03-31] MEDS: FOLIC ACID 1 MG TABLET (FP) PO SCH (10:38)
[2021-03-31] MEDS: ASPIRIN 81 MG CHEWABLE TABLETS PO SCH (10:38)
[2021-03-31] MEDS: FERROUS SO4 325 MG TABLET (FP) PO SCH (10:38)
[2021-03-31] MEDS: FAMOTIDINE 20 MG TABLET PO SCH ×2 (10:38→21:10)
[2021-03-31] MEDS: POLYETHYLENE GLYCOL (HEALTHYLAX) 3350 17 GM PACKET PO SCH (10:38)
[2021-03-31] MEDS: BACITRACIN 15 GM TUBE TOPICAL OINTMENT TP SCH (10:39)
[2021-03-31] MEDS: MELATONIN 5 MG TABLETS PO SCH (21:09)
[2021-03-31] MEDS: ATORVASTATIN CA 40 MG TABLET (FP) PO SCH (21:09)
[2021-04-01] MEDS: MECLIZINE HCL 25 MG TABLET (FP) PO SCH ×2 (05:06→13:46)
[2021-04-01] MEDS: DOCUSATE SODIUM 100 MG CAPSULE (FP) PO SCH ×2 (05:06→13:46)
[2021-04-01] MEDS: FERROUS SO4 325 MG TABLET (FP) PO SCH (09:55)
[2021-04-01] MEDS: POLYETHYLENE GLYCOL (HEALTHYLAX) 3350 17 GM PACKET PO SCH (09:55)
[2021-04-01] MEDS: ASPIRIN 81 MG CHEWABLE TABLETS PO SCH (09:55)
[2021-04-01] MEDS: FAMOTIDINE 20 MG TABLET PO SCH (09:56)
[2021-04-01] MEDS: BACITRACIN 15 GM TUBE TOPICAL OINTMENT TP SCH (09:56)
[2021-04-01] MEDS ORDERED: PT OWN MED DRAWER 7, Y5N ONE (10:04)
[2021-04-01] MEDS ORDERED: FOLIC ACID 1 MG TABLET (FP) PO SCH (11:15)
[2021-04-01 14:15] VITALS: BP 124/67; PULSE 97; TEMP 97.5
[2021-04-06 09:56] LABS: B2-GLYCOPROTEIN IGA <10; B2-GLYCOPROTEIN IGG <10; B2-GLYCOPROTEIN IGM 1
[2021-04-06 09:58] LABS: APTT 27.8; CARDIOLIPIN AB IGA <10
[2021-04-06 10:00] LABS: DRVVT CONFIRM SECONDS NOT INDICATED; HEXAGONAL PHOSPHOLIPID NEUTRAL 0
== END 2021-04-01 18:02 | DRG 21 ==
LOC: JER 07:53 → JERBED 23:13 → J7W 03-18 04:10 → INTOOBSV 03-18 17:10 → OBSVTOIN 03-18 17:10 → JICU 03-18 21:21 → J4W 03-27 17:02
PROVIDERS: ADMIT Internal Medicine; ATTEND Internal Medicine
PROC: 00NC0ZZ Release Cerebellum, Open Approach (ICD-10-PCS; principal; 2021-03-18 16:46)
PROC: B246ZZ4 Ultrasonography of Right and Left Heart, Transesophageal (ICD-10-PCS; 2021-03-25)
DX: I63.9 Cerebral infarction, unspecified (principal); R42 Dizziness and giddiness; D64.9 Anemia, unspecified; I69.991 Dysphagia following unspecified cerebrovascular disease; D68.59 Other primary thrombophilia; G93.6 Cerebral edema; G91.1 Obstructive hydrocephalus; E78.00 Pure hypercholesterolemia, unspecified
CPT/HCPCS: 36415; 70450-TC; 70551-TC; 80048; 80053; 80061; 80307; 81003; 81240; 81241; 83021; 83036; 83090; 83735; 84100; 84443; 84484; 84703; 85025; 85027; 85240; 85379; 85597; 85610; 85651; 85660; 85730; 86038; 86140; 86146; 86147; 86431; 86850; 86900; 86901; 87086; 93005; 93010; 93306-TC; 93312; 93325; 94010; 94760; 97116-GP; 97161-GP; 99285-25; C9803; G0378; J0131; J1644; U0003; U0005